=== PATIENT | female | born 1960 | race Caucasian/White ===

== ENCOUNTER 2017-05-16 09:57 | Outpatient (CLI) | payer SELFPAY ==
[2013-09-15 10:34] VITALS: O2SAT 97
== END 2017-05-16 09:58 | disposition home or self-care (01) | DRG 563 ==
LOC: CONVCARE 09:57
PROVIDERS: ATTEND Orthopaedic Surgery
DX: S62.302A Unspecified fracture of third metacarpal bone, right hand, initial encounter for closed fracture (principal); S62.304A Unspecified fracture of fourth metacarpal bone, right hand, initial encounter for closed fracture; W19.XXXA Unspecified fall, initial encounter
CPT/HCPCS: 73200

== ENCOUNTER 2017-05-26 10:39 | Day surgery (SDC) | payer SELFPAY ==
[2017-05-26] MEDS ORDERED: BUPIVACAINE/EPI 0.5% 10 ML SOL INFIL ONE ×2 (11:02→11:23)
[2017-05-26] MEDS ORDERED: MIDAZOLAM 2 MG/2 ML SOL ONE ×2 (11:07→12:38)
[2017-05-26] MEDS ORDERED: FENTANYL 100MCG/2ML SOL ONE ×3 (11:07→13:48)
[2017-05-26] MEDS ORDERED: PROPOFOL 500 MG/50 ML EMU IV ONE (11:11)
[2017-05-26] MEDS ORDERED: LIDOCAINE HCL 2% (100 MG) CARP ONE (11:11)
[2017-05-26] MEDS ORDERED: LIDOCAINE HCL 1% MPF SOL ONE (11:17)
[2017-05-26] MEDS ORDERED: CLINDAMYCIN 150 MG/ML SOL ONE (12:07)
[2017-05-26] MEDS ORDERED: ONDANSETRON HCL 4 MG/2 ML SOL ONE (12:31)
[2017-05-26 15:51] VITALS: BP 133/71; PULSE 62; RESP 18; TEMP 98.2; O2SAT 98
== END 2017-05-26 16:19 | disposition home or self-care (01) | DRG 563 ==
LOC: SURG 10:39
PROVIDERS: ATTEND Orthopaedic Surgery
DX: S62.322A Displaced fracture of shaft of third metacarpal bone, right hand, initial encounter for closed fracture (principal); S62.324A Displaced fracture of shaft of fourth metacarpal bone, right hand, initial encounter for closed fracture
CPT/HCPCS: 73130; 76000; J2001; J2250; J2405; J3010; J3490; A6402; J2704

== ENCOUNTER 2017-06-02 10:48 | Outpatient (CLI) | payer SELFPAY ==
[2017-05-26 15:51] VITALS: O2SAT 98
== END 2017-06-02 10:49 | disposition home or self-care (01) | DRG 561 ==
LOC: CONVCARE 10:48
PROVIDERS: ATTEND Orthopaedic Surgery
DX: S62.302D Unspecified fracture of third metacarpal bone, right hand, subsequent encounter for fracture with routine healing (principal); S62.304D Unspecified fracture of fourth metacarpal bone, right hand, subsequent encounter for fracture with routine healing
CPT/HCPCS: 73130

== ENCOUNTER 2017-06-23 09:28 | Outpatient (CLI) | payer SELFPAY ==
[2017-05-26 15:51] VITALS: O2SAT 98
== END 2017-06-23 09:29 | disposition home or self-care (01) | DRG 561 ==
LOC: CONVCARE 09:28
PROVIDERS: ATTEND Orthopaedic Surgery
DX: S62.302D Unspecified fracture of third metacarpal bone, right hand, subsequent encounter for fracture with routine healing (principal); S62.304D Unspecified fracture of fourth metacarpal bone, right hand, subsequent encounter for fracture with routine healing
CPT/HCPCS: 73130

== ENCOUNTER 2017-07-21 09:23 | Outpatient (CLI) | payer SELFPAY ==
[2017-05-26 15:51] VITALS: O2SAT 98
== END 2017-07-21 09:24 | disposition home or self-care (01) | DRG 561 ==
LOC: CONVCARE 09:23
PROVIDERS: ATTEND Orthopaedic Surgery
DX: S62.302D Unspecified fracture of third metacarpal bone, right hand, subsequent encounter for fracture with routine healing (principal); S62.304D Unspecified fracture of fourth metacarpal bone, right hand, subsequent encounter for fracture with routine healing
CPT/HCPCS: 73130

== ENCOUNTER 2017-08-11 10:23 | Outpatient (CLI) | payer MEDICAID ==
[2017-05-26 15:51] VITALS: O2SAT 98
== END 2017-08-11 10:24 | disposition home or self-care (01) | DRG 561 ==
LOC: RAD 10:23
PROVIDERS: ATTEND Orthopaedic Surgery
DX: S62.302D Unspecified fracture of third metacarpal bone, right hand, subsequent encounter for fracture with routine healing (principal); S62.304D Unspecified fracture of fourth metacarpal bone, right hand, subsequent encounter for fracture with routine healing
CPT/HCPCS: 73130

== ENCOUNTER 2017-09-22 09:25 | Outpatient (CLI) | payer MEDICAID, OTHER ==
[2017-05-26 15:51] VITALS: O2SAT 98
== END 2017-09-22 09:26 | disposition home or self-care (01) ==
LOC: CONVCARE 09:25
PROVIDERS: ATTEND Orthopaedic Surgery
DX: S62.302D Unspecified fracture of third metacarpal bone, right hand, subsequent encounter for fracture with routine healing (principal); S62.304D Unspecified fracture of fourth metacarpal bone, right hand, subsequent encounter for fracture with routine healing
CPT/HCPCS: 73130